=== PATIENT | male | born 1960 | race Caucasian/White ===

== ENCOUNTER → 2020-03-24 | Day surgery (SDC) | payer OTHER ==
[~2020-03-24] MED LIST: ASPIRIN CHEWABL81 MG PO; BENADRYL12.5 MG/5 PO; BUPROPION XL300 MG PO; FISH OIL 1,4001 EACH PO; LISINOPRIL 10MG10 MG PO; MELATONIN5 M2 PO; METHYLPHENIDATE20 M2 PO; MONTELUKAST SOD10 MG PO; NORCO 5-325 TA1 EACH PO; OMEPRAZOLE 20MG20 MG PO; PRAVASTATIN SOD20 MG PO; SYMBICORT 16010.2 GM INH; XYZAL5 MG PO
== END | disposition home or self-care (01) ==
LOC: FAS 07:58
DX: Z12.11 Encounter for screening for malignant neoplasm of colon (principal); K21.9 Gastro-esophageal reflux disease without esophagitis; G47.30 Sleep apnea, unspecified; F32.9 Major depressive disorder, single episode, unspecified; J45.909 Unspecified asthma, uncomplicated; I10 Essential (primary) hypertension; Z80.0 Family history of malignant neoplasm of digestive organs; Z72.0 Tobacco use
CPT/HCPCS: J2704; J7120